=== PATIENT | female | born 1980 | race Caucasian/White ===

== ENCOUNTER 2017-05-30 06:56 | Inpatient (IN) | payer OTHER ==
[~2017-05-30] VITALS: Ht 165.1 cm; Wt 93.9 kg
[~2017-05-30 06:56] MED LIST: AZITHROMYCIN 2250 MG; CLONIDINE0.1 PO; EFFEXOR XR75 MG PO; LAMICTAL100 MG PO; LEVAQUIN 500 M500 M2 PO; NORCO 5-325 TA1 EACH PO; OMNARIS; SERTRALINE HCL50 MG; VENTOLIN HFA 1818 GM INH; XANAX 0.5 MG0.5 M1 PO
[2017-05-30 07:00] VITALS: BP 159/103
[2017-05-30] MEDS ORDERED: LISINOPRIL5 MG PO (07:06)
[2017-05-30 07:32] LABS: ABSOLUTE BASOPHILS 0.1 thou/uL (0.0-0.2); ABSOLUTE EOSINOPHILS 0.5 thou/uL (0.0-0.7); ABSOLUTE LYMPHOCYTES 2.8 thou/uL (0.8-5.3); ABSOLUTE MONOCYTES 0.9 thou/uL (0.0-1.2); ABSOLUTE NEUTROPHILS 8.8 thou/uL (1.6-8.1); BASOPHILS 0.5 %; EOSINOPHILS 3.9 %; HEMATOCRIT 37.7 % (37.0-47.0); HEMOGLOBIN 12.4 gm/dL (12.0-15.0); LYMPHOCYTES 21.5 %; MCHC 32.8 g/dL (28.0-37.0); MCV 82.1 fL (80.0-100.0); MONOCYTES 6.6 %; MPV 7.2 fl. (7.2-11.1); NUCLEATED RBCS 0 /100WBC; PLATELET COUNT* 381 thou/uL (150-400); POLYS 67.5 %; RBC 4.59 mil/uL (4.20-5.00); RDW-CV 13.7 % (10.5-14.5); WBC 13.1 thou/uL (4.0-11.0)
[2017-05-30 07:40] LABS: ANION GAP < 0 mmol/L (7-16); BUN 15 mg/dL (7-18); CALCIUM 9.1 mg/dL (8.5-10.1); CHLORIDE 92 mmol/L (98-107); CO2 29 mmol/L (21-32); CREATININE 0.8 mg/dL (0.6-1.3); GLUCOSE 128 mg/dL (70-99); POTASSIUM 3.4 mmol/L (3.5-5.1)
[2017-05-30 07:46] LABS: SODIUM 117 mmol/L (136-145)
[2017-05-30 07:47] LABS: URINE BILIRUBIN NEGATIVE (Negative); URINE BLOOD TRACE (Negative); URINE CLARITY CLEAR; URINE COLOR YELLOW; URINE GLUCOSE-RANDOM NEGATIVE (Negative); URINE KETONES NEGATIVE (Negative); URINE LEUKOCYTES-REFLEX NEGATIVE (Negative); URINE NITRITE-REFLEX NEGATIVE (Negative); URINE PROTEIN NEGATIVE (Negative); URINE UROBILINOGEN 0.2 E.U./dl (0.2-1.0)
[2017-05-30 07:48] LABS: ALBUMIN 3.9 g/dL (3.4-5.0); ALKALINE PHOSPHATASE 74 U/L (46-116); LIPASE 153 U/L (73-393); SGOT 26 U/L (15-37); SGPT 75 U/L (30-65); TOTAL BILIRUBIN 0.3 mg/dL (<0.1-1.0); TOTAL PROTEIN 7.6 g/dL (6.4-8.2); TROPONIN-I LEVEL <0.06 ng/mL (<0.06)
[2017-05-30 11:03] LABS: CALCIUM 9.1 mg/dL (8.5-10.1); CREATININE 0.7 mg/dL (0.6-1.3); POTASSIUM 4.2 mmol/L (3.5-5.1)
[2017-05-30 12:00] VITALS: BP 147/85
[2017-05-30 12:45] VITALS: BP 147/103
--- NOTE | 2017-05-30 13:39 | NUR ---
PATIENT ARRIVED FROM THE ER THIS AFTERNOON WITH A HX OF C/O SEVERE ABD PAIN. PATIENT WAS TEARFUL, AND SOBBING IN PAIN ON ARRIVAL. PATIENT IS ORIENTED X 4. PATIENT WAS GOING TO RECIEVE IV PAIN MEDICATION BUT A STAT PIPPADA SCAN WAS ORDERED. EXPLAINED TO PATIENT PARAMETER OF RECIEVING TEST AND THAT SHE COULD NOT HAVE ANY NARCOTICS PRIOR TO THE PROCEDURE. PATIENT STATED THAT THE INFO WAS UNDERSTOOD. IV FLUIDS STARTED PER ORDER. PATIENT POSITIONED AND GIVEN ORAL CARE. ORIENTED TO ROOM AND PROCEDURES. PLACED ON TELE MONITOR. TELE SHOWS ST. PATIENT IS LYING QUIETLY AT THIS TIME. WILL COTINUE TO MONITOR.
[2017-05-30 16:54] VITALS: BP 144/103
[2017-05-30 20:00] VITALS: BP 131/98
[2017-05-31] VITALS: BP 110/70
[2017-05-31 04:00] VITALS: BP 116/81
--- NOTE | 2017-05-31 04:26 | NUR ---
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
[2017-05-31 06:00] LABS: CALCIUM 8.7 mg/dL (8.5-10.1); CREATININE 0.7 mg/dL (0.6-1.3); POTASSIUM 4.7 mmol/L (3.5-5.1)
[2017-05-31 08:00] VITALS: BP 124/74
[2017-05-31 11:56] VITALS: BP 119/85
--- NOTE | 2017-05-31 13:02 | EKG ---
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1980 Requested By: Soheila Pretty Order Number: [id number] MD: Casimiro Jones Measurements Intervals Lissie Rate: 121 P: 51 PA: 135 QRS: 0 QRSD: 91 T: 37 QT: 334 QTc: 474 Interpretive Statements Sinus tachycardia Low voltage, extremity and precordial leads Compared to ECG 02/28/2017 19:09:34 No significant changes Electronically Signed On 05-31-2017 13:01:54 CDT by Casimiro Jones [email or web address] <ELECTRONICALLY SIGNED> By: Alena Jones MD, [facility] 05/31/17 [id number] [id number] Alena Jones MD, [facility] /EPI
--- NOTE | 2017-05-31 13:06 | EKG ---
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1980 Requested By: Alena Jones Order Number: [id number] Reading MD: Casimiro Jones Measurements Intervals [place] Rate: 109 P: 46 ND: 138 QRS: -2 QRSD: 86 T: 19 QT: 346 QTc: 467 Interpretive Statements Sinus tachycardia Probable left atrial enlargement Low voltage, extremity and precordial leads Compared to ECG 02/28/2017 19:09:34 No significant changes Electronically Signed On 05-31-2017 13:06:40 CDT by Casimiro Jones [email or web address] <ELECTRONICALLY SIGNED> By: Alena Jones MD, [facility] 05/31/17 1306 1645 [id number] F. Casimiro Jones MD, [facility] /EPI
--- NOTE | 2017-05-31 13:09 | EKG ---
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1980 Requested By: Alena Jones Order Number: [id number] Reading MD: Casimiro Jones Measurements Intervals [place] Rate: 102 P: 48 FL: 133 QRS: 8 QRSD: 88 T: 34 QT: 363 QTc: 473 Interpretive Statements Sinus tachycardia Low voltage, extremity and precordial leads Compared to ECG 02/28/2017 19:09:34 No significant changes Electronically Signed On 05-31-2017 13:08:59 CDT by Casimiro Jones [email or web address] <ELECTRONICALLY SIGNED> By: Alena Jones MD, [facility] 05/31/17 1306 2 2 Alena Jones MD, [facility] /EPI
--- NOTE | 2017-05-31 15:01 | NUR ---
ASSUMED CARE OF PATIENT THIS AM AT 0730. PATIENT CONTINUES ALERT AND ORIENTED X 4 THROUGH THE DAY TODAY. SHE SAID THAT HER PAIN HAS DIMINISHED OVER ALL. PATIENT C/O SINUS BLACKMAN TODAY AND SOME ABD PAIN. DR DEL TORO NOTIFIED OF PATIENTS'S C/O. ORDERS WRITTEN AND CARRIED OUT. SEE MAR. NEW CONSULT FOR SURGERY CALLED. PATIENT PLACED BACK ON NPO STATUS TODAY. PATIENT HAS BEEN UP IN THE ROOM INDEPENDENTLY. NO FALLS OR INJURY. TELE SHOWS SR TO ST. O2 SATS 91 TO 94 %. PATIENT INSTRUCTED TO TCBD Q 2 HR. WILL CONTINUE TO MONITOR.
[2017-05-31 15:17] VITALS: BP 94/53
[2017-05-31 19:40] VITALS: BP 141/72
[2017-06-01] VITALS: BP 120/77
[2017-06-01 04:00] VITALS: BP 112/71
--- NOTE | 2017-06-01 05:15 | NUR ---
A&0 X4 CALM COOPERITVE. SR ON THE MONITOR. ADLIB. FLUIDS. NPO FOR POSSIBLE SURGERY ON GULLBLADDER. DENIES PAIN. VITALS WNL. HOURLY ROUNDING FOR SAFETY.
[2017-06-01 05:34] LABS: ABSOLUTE EOSINOPHILS 0.4 thou/uL (0.0-0.7); ABSOLUTE LYMPHOCYTES 2.5 thou/uL (0.8-5.3); ABSOLUTE MONOCYTES 0.7 thou/uL (0.0-1.2); ABSOLUTE NEUTROPHILS 7.8 thou/uL (1.6-8.1); BASOPHILS 0.3 %; EOSINOPHILS 3.3 %; HEMATOCRIT 33.4 % (37.0-47.0); HEMOGLOBIN 11.1 gm/dL (12.0-15.0); LYMPHOCYTES 22.1 %; MCH 27.3 pg (26.0-34.0); MCHC 33.4 g/dL (28.0-37.0); MONOCYTES 5.8 %; MPV 7.5 fl. (7.2-11.1); NUCLEATED RBCS 0 /100WBC; PLATELET COUNT* 321 thou/uL (150-400); POLYS 68.5 %; RBC 4.08 mil/uL (4.20-5.00); WBC 11.3 thou/uL (4.0-11.0)
[2017-06-01 05:49] LABS: ALBUMIN 3.2 g/dL (3.4-5.0); CALCIUM 8.4 mg/dL (8.5-10.1); CREATININE 0.7 mg/dL (0.6-1.3); MAGNESIUM 1.8 mg/dL (1.8-2.4); PHOSPHORUS* 2.8 mg/dL (2.5-4.9); POTASSIUM 4.2 mmol/L (3.5-5.1); TOTAL BILIRUBIN 0.5 mg/dL (<0.1-1.0); TOTAL PROTEIN 6.2 g/dL (6.4-8.2)
[2017-06-01 08:00] VITALS: BP 117/69
[2017-06-01 12:00] VITALS: BP 108/72
--- NOTE | 2017-06-01 14:12 | NUR ---
ASSUMED RESPONSIBILITY OF PT THIS AM PT ALERT AND ORIENTEDX4 UP AD KYE IV FLUIDS CONTINUE PLAN FOR SURGERY TOMORROW CLEAR LIQUIDS STARTED MILD PAIN TO RIGHT UPPER QUAD AREA PT HAD A BM INCONTINENT DIDN'T EXPECT IT TO COME OUT THAT FAST CARDIOLOGY SIGNED OFF WANTS ECHO DONE CALL LIGHT IN REACH
--- NOTE | 2017-06-01 14:53 | NUR ---
Pt is A&O. Resides at home with her . Independent with ADLs. No DME. No hx of HH or SNF. Cleared by CV to have lap karuna tomorrow. Following for dc needs.
--- NOTE | 2017-06-01 17:00 | 2DMMODE ---
[place] [address] 2 D/M-MODE ECHOCARDIOGRAM Name: PATRIA KIM V Room: [address] IN [facility]#: [id number] Admission: 05/30/17 Attend Phys: Eleno Key, Discharge: Date of : 84 Date of Service: 06/01/17 1700 Report #: [id number] THIS REPORT FOR: //name// APPROVED REPORT Study performed: 06/01/2017 14:15:31 EXAM: Comprehensive 2D, Doppler, and color-flow Echocardiogram Patient Location: In-Patient Room #: 200 Status: routine BSA: 1.98 HR: 85 bpm BP: 108/72 mmHg Rhythm: NSR Other Information Study Quality: Good Indications Abnormal ECG Abdominal pain 2D Dimensions IVSd: 8.62 (7-11mm) LVOT Diam: 20.56 (18-24mm) LVDd: 47.23 mm PWd: 7.83 (7-11mm) Ascending Ao: 30.08 (22-36mm) LVDs: 36.90 (25-40mm) Aortic Root: 30.14 mm Volumes Left Atrial Volume (Systole) LA ESV Index: 18.10 mL/m2 Aortic Valve AoV Peak Sergio.: 1.10 m/s AO Peak Gr.: 4.87 mmHg LVOT Max P.38 mmHg AO Mean Gr.: 2.62 mmHg LVOT Mean P.81 mmHg LVOT Max V: 0.92 m/s AO V2 VTI: 20.23 cm LVOT Mean V: 0.63 m/s PIETER (VTI): 2.89 cm2 LVOT V1 VTI: 17.58 cm Mitral Valve E/A Ratio: 1.32 MV Decel. Time: 186.47 [place] [address] 2 D/M-MODE ECHOCARDIOGRAM Name: PATRIA KIM V Room: [address]#: [id number] Admission: 05/30/17 Attend Phys: Eleno Key, Discharge: Date of : 84 Date of Service: 06/01/17 1700 Report #: [id number] MV E Max Sergio.: 0.82 m/s MV PHT: 54.08 ms MVA (PHT): 4.07 cm2 TDI E/Lateral E': 5.13 E/Medial E': 6.31 Medial E' Sergio.: 0.13 m/s Lateral E' Sergio.: 0.16 m/s Pulmonary Valve PV Peak Sergio.: 0.82 m/s PV Peak Gr.: 2.70 mmHg Tricuspid Valve TR Peak Gr.: 15.52 mmHg RVSP: 20.00 mmHg Left Ventricle The left ventricle is normal size. There is normal LV segmental wall motion. There is normal left ventricular wall thickness. Left ventricular systolic function is normal. The left ventricular ejection fraction is within the normal range. LVEF is 50-55%. The left ventricular diastolic function is normal. Right Ventricle The right ventricle is normal size. The right ventricular systolic function is normal. Atria The left atrium size is normal. The right atrium size is normal. Aortic Valve The aortic valve is normal in structure. No aortic regurgitation is present. There is no aortic valvular stenosis. Mitral Valve The mitral valve is normal in structure. Trace mitral regurgitation. No evidence of mitral valve stenosis. Tricuspid Valve The tricuspid valve is normal in structure. Trace tricuspid regurgitation. The RVSP is ___20____ mmHg. Pulmonic Valve The pulmonary valve is normal in structure. Trace pulmonic [place] [address] 2 D/M-MODE ECHOCARDIOGRAM Name: JULIOPATRIA LANZA Remington Room: [address] IN [facility]#: [id number] Admission: 05/30/17 Attend Phys: Eleno Key, Discharge: Date of : 84 Date of Service: 06/01/17 1700 Report #: [id number] Great Vessels The aortic root is normal in size. IVC is not well visualized. Pericardium There is no pericardial effusion. <Conclusion> Left ventricular systolic function is normal. The left ventricular ejection fraction is within the normal range. <ELECTRONICALLY SIGNED> By: Huseyin Blunt MD, FACC 06/01/171699 99 99 Huseyin Blunt MD, FACC /INF
[2017-06-01 20:00] VITALS: BP 117/69
[2017-06-02 00:25] VITALS: BP 116/79
--- NOTE | 2017-06-02 00:26 | NUR ---
ASSUMED PT CARE AT 1930, PT IS A&OX4, PT IS MED SURG, ON RA SATTING MID TO HIGH 90'S. PT DENIES ANY PAIN OR NEEDS AT THIS TIME. PT IS NPO FOR PENDING GALLBLADDER REMOVAL IN THE AM, CONSENT WILL BE SIGNED IN THE AM, BED IN LOW POSITION, CALL LIGHT IN REACH, HOURLY ROUNDING COMPLETED FOR PT SAFETY. IVF INFUSING PER MAR. PT IS UP AD KYE IN HER ROOM AND STABLE ON HER FEET.
[2017-06-02 05:48] LABS: ABSOLUTE EOSINOPHILS 0.4 thou/uL (0.0-0.7); ABSOLUTE LYMPHOCYTES 2.2 thou/uL (0.8-5.3); ABSOLUTE MONOCYTES 0.6 thou/uL (0.0-1.2); ABSOLUTE NEUTROPHILS 7.4 thou/uL (1.6-8.1); BASOPHILS 0.3 %; EOSINOPHILS 3.5 %; HEMATOCRIT 34.8 % (37.0-47.0); HEMOGLOBIN 11.7 gm/dL (12.0-15.0); LYMPHOCYTES 20.6 %; MCH 27.5 pg (26.0-34.0); MCHC 33.5 g/dL (28.0-37.0); MCV 81.9 fL (80.0-100.0); MONOCYTES 5.8 %; MPV 7.5 fl. (7.2-11.1); NUCLEATED RBCS 0 /100WBC; PLATELET COUNT* 324 thou/uL (150-400); POLYS 69.8 %; RBC 4.25 mil/uL (4.20-5.00); RDW-CV 14.3 % (10.5-14.5); WBC 10.5 thou/uL (4.0-11.0)
[2017-06-02 05:52] LABS: APTT 28.2 Seconds (25.0-31.3); INR 1.1; PROTIME 10.5 Seconds (9.20-11.50)
[2017-06-02 06:16] LABS: ALBUMIN 3.3 g/dL (3.4-5.0); CALCIUM 8.6 mg/dL (8.5-10.1); CREATININE 0.8 mg/dL (0.6-1.3); POTASSIUM 4.3 mmol/L (3.5-5.1); TOTAL BILIRUBIN 0.4 mg/dL (<0.1-1.0); TOTAL PROTEIN 6.2 g/dL (6.4-8.2)
[2017-06-02 06:34] VITALS: BP 116/79
--- NOTE | 2017-06-02 07:45 | NUR ---
PT WENT DOWN FOR SURGERY GALL BLADDER REMOVAL
[2017-06-02 08:00] VITALS: BP 123/76
[2017-06-02] MEDS ORDERED: LOPRESSOR25 PO (09:36)
[2017-06-02 12:00] VITALS: BP 130/80
[2017-06-02 16:00] VITALS: BP 124/69
--- NOTE | 2017-06-02 16:14 | CON ---
[address] [address] CONSULTATION Name: PATRIA KIM V Room: [address] IN M.R.#: [id number] Admission: 05/30/17 Attend Phys: Eleno Key MD Discharge: Date of : 84 Report #: [id number] THIS REPORT FOR: //name// CC: Eleno Robertson DATE OF SERVICE: 05/31/2017 CARDIOLOGY CONSULTATION HISTORY OF PRESENT ILLNESS: I was asked by Dr. Key to see this 37-year-old white female in cardiology consultation for evaluation and treatment of sinus tachycardia. This lady presented to the Emergency Room here with right upper quadrant pain as well as diffuse abdominal pain, back pain and some chest pain. She was found to have acute cholecystitis with stones. There was no filling of her gallbladder on this study. She does have a history of high blood pressure. Otherwise, she has no coronary risk factors other than her grandfather and great grandmother having a history of some sort of heart disease. She no longer is having any chest pain. She was noted to have sinus tachycardia at a rate of around 120 that has come down. She has gotten some beta connie to bring it down, but she admits to having been in severe pain of 8 or 9 on a scale of 10 for 8 hours before she came in and she was quite anxious as well. This lady was hypertensive when she came in, that has come down, whether or not she has been compliant with her antihypertensive medication is not clear. The chest pain she had was not worse with activity or better with rest. It was not associated with shortness of breath, nausea or vomiting. Her abdominal pain was exacerbated by food, she thought it was indigestion. She does have chronic dyspnea on exertion, but not orthopnea, PND or edema. She is obese. She has not had syncope or near syncope. She does not smoke, does not have high cholesterol or diabetes to her knowledge. She has not had peripheral vascular disease, does not have claudication. She has had no prior cardiac history. ALLERGIES: She is allergic to PENICILLIN. MEDICATIONS: Have been albuterol p.r.n. for apparent bronchitis, not frankly asthma. She takes Lamictal 100 mg daily, lisinopril 5 mg daily and Effexor 75 mg daily. REVIEW OF SYSTEMS: Positive for cough, chest discomfort, shortness of breath with exercise, seasonal allergies, PENICILLIN allergy and wearing glasses. Otherwise, review of systems is negative for some 40 different complaints in 14 different system categories. Please see our review of system form for details and negatives in review of system. SOCIAL HISTORY: She is , does not smoke, drink [place] [address] CONSULTATION Name: PATRIA KIM V Room: [address] IN M.R.#: [id number] Admission: 05/30/17 Attend Phys: Eleno Key MD Discharge: Date of : 84 Report #: [id number] FAMILY HISTORY: Negative other than as described above. PHYSICAL EXAMINATION: GENERAL: She presents as well-developed, well-nourished, obese white female in no acute distress. VITAL SIGNS: Pulse was 87 and regular, temperature is 98 degrees, her blood pressure is 116/81, respirations 16 and regular. She is clinically afebrile. HEENT: Head was atraumatic. Eyes clear. Mucous membranes are moist. NECK: Supple. There is no jugular venous distention or hepatojugular reflux. Thyroid is not enlarged. There is no adenopathy. SKIN: Warm and dry. LUNGS: Clear to auscultation and percussion. HEART: Revealed normal first and second heart sounds. There is soft S4. There is no S3. There are no murmurs, rubs, thrills, heaves or gallops. PMI is nondisplaced. ABDOMEN: Soft and flat, but obese. She does have a significant right upper quadrant tenderness that does reproduce her abdominal pain and to some degree her chest pain. There is no rebound or guard. There is no palpable liver, kidney, or spleen. EXTREMITIES: Reveal no cyanosis, clubbing or edema. NEUROLOGIC: The patient mentated normally, talked normally and moved all extremities normally. LABORATORY DATA: Her EKG reveals sinus tachycardia. Heart rate was 102, that is from this morning, otherwise it is normal. One from yesterday at 7:00 a.m. revealed sinus tachycardia, heart rate of 101, otherwise unremarkable. She had another one from 04:45 yesterday evening, sinus tachycardia, rate is 109. The monitors all show either normal sinus rhythm or mild sinus tachycardia. Her chest x-ray is unremarkable, it is normal. Gallbladder ultrasound shows cholelithiasis and sludge and the nuclear scan did not visualize the gallbladder. IMPRESSION: 1. Sinus tachycardia secondary to the pain and anxiety produced by her illness. 2. Cholecystitis with cholelithiasis. 3. Essential hypertension. 4. Chest pain that was secondary to her gallbladder pain. 5. Obesity. RECOMMENDATION: She is already on a low dose of beta connie that could be continued. Hopefully, will be able to be tapered off and stopped. She will probably need more aggressive blood pressure management, ultimately perhaps a bigger dose of lisinopril. I think she is a reasonable candidate for gallbladder surgery. [address] [address] CONSULTATION Name: PATRIA KIM V Room: [address] IN .R.#: [id number] Admission: 05/30/17 Attend Phys: Eleno Key MD Discharge: Date of : 84 Report #: [id number] If her surgery has been delayed and there is concern about her chest pain, which I think was secondary to her gallbladder, then certainly a stress test and an echo could be obtained, although I am confident both of them will be normal. Thank you very much for asking me to see the patient. If there are any questions, please feel free to contact me. <ELECTRONICALLY SIGNED> By: Alena Jones MD, [facility] 06/02/17 1614 1202 [id number]. Casimiro Jones MD, FACGonzales /nt
--- NOTE | 2017-06-02 18:17 | NUR ---
PT IN BED C/O PAIN AFTER SURGERY RECEIVED 3 DOSES OF MORPHINE AND 2 OF ZOFRAN ONLY TAKING SMALL SIPS AND RESTING NOW PT DOESN'T FEEL SAFE LEAVING TONIGHT PT IS MED SURG WILL PROBABLY TRANSFER DOWNSTAIRS THEN WILL PLAN ON DISCHARGE TOMORROW DID GET UP AND VOIDED ON BSC
[2017-06-02 20:00] VITALS: BP 114/68
[2017-06-03 03:54] VITALS: BP 94/52
--- NOTE | 2017-06-03 05:15 | NUR ---
ASSUMED CARE OF PT AT 1900 PT ALERT AND ORIENTED X4 VS AND ASSESSMENT STABLE. ABD DRSGS CDI. PAIN MEDSX 2 THIS SHIFT THEN PT SLEPT THROUGH THE NIGHT. WILL CONTINUE PLAN OF CARE.
[2017-06-03 07:30] VITALS: BP 98/58
[2017-06-03] MEDS ORDERED: LOPRESSOR25 PO (08:00)
[2017-06-03 08:30] VITALS: BP 133/63
--- NOTE | 2017-06-03 09:31 | NUR ---
RECEIVED PT CARE 0700. PT IS ALERT AND ORIENTED X4. VSS. 93% O2 SAT ON ROOM AIR. SHE DENIES ANY SOA. UP INDEPENDENTLY IN ROOM WITH BATHROOM PRIVILEDGES. GAIT IS STEADY. PLANNING FOR DC TO HOME TODAY.
[2017-06-03] MEDS ORDERED: HYDROCODONE-AP1 EAC6 PO (09:39)
[2017-06-03 09:42] VITALS: BP 98/58
--- NOTE | 2017-06-03 12:21 | NUR ---
RECEIVED DISCHARGE ORDERS PER DR DEL TORO. SURGERY OK WITH DC TO HOME TODAY. IV DISCONTINUED. NEW SCRIPTS GIVEN WITH MED INFORMATION SHEETS. EDUCATED PATIENT ON F/U APPT WITH SURGERY AND HER PRIMARY POST DISCHARGE. EDUCATED ON ACTIVITY RESTRICTIONS POST DISCHARGE. EDUCATION GIVEN ON HOME MEDICATIONS. INSRUCTED PATIENT TO STOP HER LISINOPRIL AT HOME AND START METOPROLOL. PATIENT VERBALIZED UNDERSTANDING AND DENIES ANY QUESTIONS OR CONCERNS AT DISCHARGE. LEAVING VIA WHEELCHAIR ACCOMPANIED BY NURSING STAFF AND HER FAMILY.
--- NOTE | 2017-06-03 13:22 | S ---
[address] [address] SURGICAL PATH RPT PROCEDURE Name: PATRIA KRISHNAN V Room: [address] IN .R.#: [id number] Admission: 05/30/17 Date of : 84 Discharge: 06/03/17 Report #: [id number] Path Case #: [id number] PATHOLOGY REPORT COLLECTION DATE: 06/02/2017 RECEIVED DATE: 06/02/2017 SUBMITTING PHYS: Dr. Andrei Baker OTHER PHYS: Dr. Eleno Key SPECIMEN(S) RECEIVED: A.Gallbladder * * * * * * * * * * * * FINAL DIAGNOSIS: Gallbladder: - Chronic cholecystitis and cholelithiasis. (ADRIANNE:mgr; 06/03/2017) PATHOLOGIST: Zan Harrell M.D. REPORT ELECTRONICALLY SIGNED BY: Zan Harrell M.D. DATE/TIME: 06/03/2017 13:21 * * * * * * * * * * * * GROSS PATHOLOGY: Received in formalin labeled "Patria Krishnan, gallbladder," is a 10.5 x 2.6 x 2.9 cm, previously punctured gallbladder with dark pink, vascular serosal surfaces. Opening the gallbladder reveals dark pink, velvety mucosa and an average wall thickness of 0.2 cm. Calculi are present, measuring 2.1 cm in maximum dimension, possessing a bright yellow and granular appearance, and feeling friable to the touch. No masses are noted grossly. Records Analyst sections from the body and fundus are submitted along with the proximal margin in cassette A1. (TSD; 06/02/2017) CLINICAL HISTORY: Cholecystitis with cholelithiasis INITIAL CPT CODE(S): A; 57389 Professional services performed by [facility] at [facility], [address] [place] [address] [address], [place] [address]. Technical services performed by [facility] at [address] [place] [address], [address] [address]. [place] [address] SURGICAL PATH RPT PROCEDURE Name: PATRIA KRISHNAN V Room: [address] IN M.R.#: [id number] Admission: 05/30/17 Date of : 84 Discharge: 06/03/17 Report #: [id number] Path Case #: [id number] [facility] [address] [place] [id number] PHONE: [phone] DIRECTOR: Jim Solo M.D. * * * END OF REPORT * * *
--- NOTE | 2017-06-09 10:58 | OP ---
[address] [address] OPERATIVE REPORT Name: KIESHA KIMFER Remington Room: [address]#: [id number] Admission: 05/30/17 Attend Phys: Eleno Key MD Discharge: 06/03/17 Date of : 84 Report #: [id number] THIS REPORT FOR: //name// CC: Eleno Robertson DATE OF SERVICE: 06/02/2017 PREOPERATIVE DIAGNOSIS: Acute cholecystitis with cholelithiasis. POSTOPERATIVE DIAGNOSIS: Acute cholecystitis with cholelithiasis. PROCEDURE: Laparoscopic cholecystectomy. SURGEON: Andrei Baker DO. FABRIC DESIGNER: Amaury Steward DO, PGY2, resident. SECOND OFFICE PROFESSIONAL: Jaison Sutherland DO, PGY1 resident. ANESTHESIA: General endotracheal. ESTIMATED BLOOD LOSS: 30 mL. COMPLICATIONS: None. DESCRIPTION OF PROCEDURE: After obtaining proper consents and discussing risks and complications with the patient, she was taken to the operating room, laid in the supine position and administered general anesthesia. She was then prepped and draped in the usual fashion. An infraumbilical skin incision was made with a #11 scalpel blade. This was carried down through the skin into the subcutaneous tissue using electrocautery for hemostasis. Once the fascia was encountered, it was incised along the midline, grasped and elevated with [facility] clamps. The peritoneum was then bluntly opened using a hemostat. A finger was placed inside the peritoneal cavity to assure there were no tanya-incisional adhesions. Next, 2-0 Vicryl sutures were placed in a [id number] fashion to secure the Ayan trocar, which was then inserted and insufflation was begun. Once insufflation was complete, full visual inspection of the anterior abdominal organs was performed. This revealed very distended thick walled appearing gallbladder. The liver was somewhat fatty as well and there is a large amount of omental fat identified. We then placed the patient in reverse Trendelenburg position. A 5 mm trocar was placed to the subxiphoid position. Two 5 mm trocars were placed in the right flank. The gallbladder was then grasped and elevated. There were adhesions of the duodenum to [place] [address] OPERATIVE REPORT Name: PATRIA KIM V Room: [address] IN [facility].#: [id number] Admission: 05/30/17 Attend Phys: Eleno Key MD Discharge: 06/03/17 Date of : 84 Report #: [id number] were bluntly taken down using the [place] dissector and also using electrocautery, but staying well away from the duodenum. Once these were removed, we were easily able to identify the Salo's pouch. There appeared to be a stone in the neck of the gallbladder, which was completely obstructing the gallbladder. Also prior to doing this, we did aspirate the gallbladder. Because it was so tense, we were unable to grasp it. I was able to milk the stone up into the body of the gallbladder and then grasped Salo's pouch, which was then elevated. The hepatoduodenal ligament was stripped down until we could visualize the cystic duct as it coursed directly into the gallbladder. I also obtained a good view of the common hepatic duct and common bile duct. The cystic duct was completely dissected free. It was clipped proximally and distally and then divided between clips. The cystic artery was then dissected free. It was clipped proximally and distally and then divided. The gallbladder was then removed from the liver bed. In the process of doing this, we did identify a second artery, which was coursing directly into the gallbladder posteriorly. This was completely dissected free and clipped proximally and distally as well. The gallbladder was then completely removed from the liver bed using electrocautery and placed into an Endopouch. We then assured hemostasis within the liver bed. The cystic duct and cystic artery stumps were checked for any leak or bleeding. The area was then copiously irrigated and all fluid was aspirated back. We then placed the patient back in the normal supine position, insufflation was stopped and all air was released. Trocars were removed under direct vision. The gallbladder was removed through the umbilical incision. The umbilical fascia was then closed using the two previously placed ____ Vicryl sutures plus two additional 0 Vicryl sutures. Skin incisions were closed using 4-0 Monocryl subcuticular stitches. The wounds were injected with 0.5% Marcaine without epinephrine. Mastisol, Steri-Strips, sterile OpSite and pressure dressings were placed. Sponge, needle and instrument counts were all correct at the end of the procedure. <ELECTRONICALLY SIGNED> By: Andrei Baker DO 06/09/17 1058 1007 1045Aсветлана Baker DO /nt
== END 2017-06-03 12:24 | disposition home or self-care (01) | DRG 418 ==
LOC: M.ERS 06:56 → M.2W 09:12 → M.TBA-ER 09:12 → M.2W 12:06
PROVIDERS: Emergency Medicine; Surgery; ADMIT Internal Medicine
PROC: 0FT44ZZ Resection of Gallbladder, Percutaneous Endoscopic Approach (ICD-10-PCS; principal; 2017-06-02)
DX: K80.00 Calculus of gallbladder with acute cholecystitis without obstruction (principal); R65.10 Systemic inflammatory response syndrome (SIRS) of non-infectious origin without acute organ dysfunction; K82.1 Hydrops of gallbladder; E87.1 Hypo-osmolality and hyponatremia; R00.0 Tachycardia, unspecified; K75.81 Nonalcoholic steatohepatitis (NASH); E66.9 Obesity, unspecified; R07.9 Chest pain, unspecified; I10 Essential (primary) hypertension; F32.9 Major depressive disorder, single episode, unspecified; F41.9 Anxiety disorder, unspecified; Z79.899 Other long term (current) drug therapy; Z88.0 Allergy status to penicillin; Z68.34 Body mass index [BMI] 34.0-34.9, adult

== ENCOUNTER 2017-10-25 21:54 | Emergency (ER) | payer OTHER ==
[~2017-10-25] VITALS: Ht 165.1 cm; Wt 88.9 kg
[~2017-10-25 21:54] MED LIST changes: +HYDROCODONE-AP1 EAC6 PO; +LISINOPRIL5 MG PO; +LOPRESSOR25 PO
[2017-10-25] MEDS ORDERED: EVEKEO10 MG (22:47)
[2017-10-25 22:53] LABS: ABSOLUTE EOSINOPHILS 0.4 thou/uL (0.0-0.7); ABSOLUTE LYMPHOCYTES 2.9 thou/uL (0.8-5.3); ABSOLUTE MONOCYTES 0.6 thou/uL (0.0-1.2); ABSOLUTE NEUTROPHILS 6.9 thou/uL (1.6-8.1); BASOPHILS 0.5 %; EOSINOPHILS 3.8 %; HEMATOCRIT 40.7 % (37.0-47.0); HEMOGLOBIN 13.4 gm/dL (12.0-15.0); LYMPHOCYTES 26.5 %; MCH 26.8 pg (26.0-34.0); MCV 81.2 fL (80.0-100.0); MONOCYTES 5.4 %; MPV 7.5 fl. (7.2-11.1); NUCLEATED RBCS 0 /100WBC; PLATELET COUNT* 454 thou/uL (150-400); POLYS 63.8 %; RBC 5.02 mil/uL (4.20-5.00); RDW-CV 12.8 % (10.5-14.5); WBC 10.8 thou/uL (4.0-11.0)
[2017-10-25 22:57] LABS: ANION GAP 6 mmol/L (7-16); BUN 15 mg/dL (7-18); CALCIUM 9.2 mg/dL (8.5-10.1); CHLORIDE 103 mmol/L (98-107); CO2 31 mmol/L (21-32); GLUCOSE 95 mg/dL (70-99); POTASSIUM 3.6 mmol/L (3.5-5.1); SODIUM 140 mmol/L (136-145)
[2017-10-25 23:07] LABS: ALBUMIN 4.3 g/dL (3.4-5.0); ALKALINE PHOSPHATASE 75 U/L (46-116); LIPASE 185 U/L (73-393); MAGNESIUM 1.8 mg/dL (1.8-2.4); NT-PRO BRAIN NAT PEPTIDE 33 pg/mL (<300); SGOT 15 U/L (15-37); SGPT 36 U/L (30-65); TOTAL BILIRUBIN 0.3 mg/dL (<0.1-1.0); TOTAL PROTEIN 7.7 g/dL (6.4-8.2); TROPONIN-I LEVEL <0.06 ng/mL (<0.06)
[2017-10-26] MEDS ORDERED: NORCO 5-325 TA1 EACH PO (00:46)
[2017-10-26 01:11] VITALS: BP 116/78
--- NOTE | 2017-10-26 10:42 | EKG ---
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1980 Requested By: Jaret Schultz Order Number: [id number] MD: Huseyin Blunt Measurements Intervals [place] Rate: 93 P: 118 [place]: 119 QRS: -2 QRSD: 90 T: 145 QT: 373 QTc: 464 Interpretive Statements Sinus rhythm low voltage Borderline short [place] interval Probable lateral infarct, age indeterminate Baseline wander in lead(s) V1 Compared to ECG 05/31/2017 08:13:18 Sinus tachycardia no longer present Electronically Signed On 10-26-2017 10:41:47 CDT by Huseyin Blunt [email or web address] <ELECTRONICALLY SIGNED> By: Huseyin Blunt MD, [facility] 10/26/17 1041 [phone] Huseyin Blunt MD, [facility] /EPI
--- NOTE | 2017-10-26 10:48 | EKG ---
[place] [address] ELECTROCARDIOGRAM REPORT Name: PATRIA KIM V Room: [facility]#: [id number] Admission: 10/25/17 Attend Phys: Discharge: 10/26/17 Date of : 84 Report #: [id number] THIS REPORT FOR: //name// [facility] ED Test Date: 2017-10-26 Test Time: 00:03:12 Pat Name: PATRIA BAKERNUM Department: Room: Gender: F Safety Intern: : 1980 Requested By: Jaret Schultz Order Number: [id number] MD: Huseyin Blunt Measurements Intervals [place] Rate: 72 P: 27 ID: [id number] QRS: 12 QRSD: 93 T: 49 QT: 409 QTc: 448 Interpretive Statements Sinus rhythm Borderline low voltage, extremity leads Compared to ECG 10/25/2017 21:59:25 no change Electronically Signed On 10-26-2017 10:47:55 CDT by Huseyin Blunt [email or web address] <ELECTRONICALLY SIGNED> By: Huseyin Blunt MD, [facility] 10/26/17 1047 0003 0003 Huseyin Blunt MD, FACC /EPI
== END 2017-10-26 01:13 | disposition home or self-care (01) ==
LOC: M.ERS 21:54
PROVIDERS: Emergency Medicine Emergency Medical Services
DX: R07.89 Other chest pain (principal); I10 Essential (primary) hypertension; F41.9 Anxiety disorder, unspecified; F32.9 Major depressive disorder, single episode, unspecified; Z88.0 Allergy status to penicillin

== ENCOUNTER 2020-03-20 06:39 | Emergency (ER) | payer OTHER ==
[~2020-03-20] VITALS: Ht 165.1 cm; Wt 76.2 kg
[~2020-03-20 06:39] MED LIST changes: +EVEKEO10 MG
[2020-03-20] MEDS ORDERED: SERTRALINE HCL50 MG PO (06:50)
[2020-03-20 07:40] LABS: ABSOLUTE BASOPHILS 0.1 thou/uL (0.0-0.2); ABSOLUTE EOSINOPHILS 0.2 thou/uL (0.0-0.7); ABSOLUTE LYMPHOCYTES 2.9 thou/uL (0.8-5.3); ABSOLUTE MONOCYTES 0.5 thou/uL (0.0-1.2); ABSOLUTE NEUTROPHILS 7.7 thou/uL (1.6-8.1); BASOPHILS 0.6 %; EOSINOPHILS 2.2 %; HEMATOCRIT 39.9 % (37.0-47.0); LYMPHOCYTES 25.4 %; MCH 26.8 pg (26.0-34.0); MCHC 32.6 g/dL (28.0-37.0); MCV 82.3 fL (80.0-100.0); MONOCYTES 4.6 %; MPV 6.6 fl. (7.2-11.1); NUCLEATED RBCS 0 /100WBC; PLATELET COUNT* 365 thou/uL (150-400); POLYS 67.2 %; RBC 4.84 mil/uL (4.20-5.00); RDW-CV 12.8 % (10.5-14.5); WBC 11.5 thou/uL (4.0-11.0)
[2020-03-20 07:48] LABS: ANION GAP 5 mmol/L (7-16); BUN 9 mg/dL (7-18); CALCIUM 9.4 mg/dL (8.5-10.1); CHLORIDE 104 mmol/L (98-107); CO2 32 mmol/L (21-32); CREATININE 0.7 mg/dL (0.6-1.3); GLUCOSE 102 mg/dL (70-99); POTASSIUM 4.4 mmol/L (3.5-5.1); SODIUM 141 mmol/L (136-145)
[2020-03-20 07:50] LABS: APTT 23.9 Seconds (25.0-31.3); PROTIME 10.4 Seconds (9.20-11.50)
[2020-03-20 08:01] LABS: ALKALINE PHOSPHATASE 51 U/L (46-116); CK-MB MASS < 0.5 ng/mL (<0.5-3.6); LIPASE 122 U/L (73-393); MAGNESIUM 2.1 mg/dL (1.8-2.4); NT-PRO BRAIN NAT PEPTIDE 18 pg/mL (<300); SGOT 12 U/L (15-37); SGPT 25 U/L (30-65); TOTAL BILIRUBIN 0.6 mg/dL (<0.1-1.0); TOTAL PROTEIN 7.3 g/dL (6.4-8.2)
[2020-03-20 08:16] VITALS: BP 120/87
--- NOTE | 2020-03-20 14:02 | EKG ---
[place] [address] ELECTROCARDIOGRAM REPORT Name: PATRIA KIM V Room: [facility]#: [id number] Admission: 03/20/20 Attend Phys: Discharge: 03/20/20 Date of : 84 Date of Service: 03/20/20 0644 Report #: [id number] THIS REPORT FOR: //name// [facility] ED Test Date: 2020-03-20 Test Time: 06:44:57 Pat Name: PATRIA JULIO Department: Room: Gender: F Lepidopterist: : 1980 Requested By: True Muñoz Order Number: [id number] MD: Jamaal Mehta Measurements Intervals [place] Rate: 119 P: 61 MO: 127 QRS: 51 QRSD: 101 T: 44 QT: 322 QTc: 454 Interpretive Statements Sinus tachycardia Low voltage, extremity and precordial leads Minimal ST depression, anterolateral leads Compared to ECG 10/26/2017 00:03:12 ST (T wave) deviation now present Sinus rhythm no longer present Electronically Signed On 03-20-2020 14:02:34 READING PROFESSOR by Jamaal Mehta [email or web address] <ELECTRONICALLY SIGNED> By: Jamaal Mehta MD, FAC 03/20/20 [phone] Jamaal Mehta MD, FAC /EPI
== END 2020-03-20 08:16 | disposition home or self-care (01) ==
LOC: M.ERS 06:39
PROVIDERS: Family Medicine
DX: R07.9 Chest pain, unspecified (principal); I10 Essential (primary) hypertension; Z79.899 Other long term (current) drug therapy; Z88.0 Allergy status to penicillin

== ENCOUNTER → 2020-03-27 | Outpatient (CLI) | payer OTHER ==
[~2020-03-27] MED LIST changes: +SERTRALINE HCL50 MG PO
--- NOTE | 2020-03-27 15:41 | 2DMMODE ---
[place] [address] 2 D/M-MODE ECHOCARDIOGRAM Name: JULIOKIESHA MENDOZAFER [place] Room: [facility]#: [id number] Admission: 03/27/20 Attend Phys: Aisha Meléndez, Discharge: Date of : 84 Date of Service: 03/27/20 1541 Report #: [id number] THIS REPORT FOR: cc: Aisha Meléndez APRN, Amber APRN FNP Liston, Michael J. MD [facility] ~ APPROVED REPORT Study performed: 03/27/2020 13:47:33 EXAM: Comprehensive 2D, Doppler, and color-flow Echocardiogram Patient Location: Out-Patient BSA: 1.82 HR: 78 bpm BP: 115/70 mmHg Other Information Study Quality: Good Indications Palpitations 2D Dimensions IVSd: 11.58 (7-11mm) LVOT Diam: 20.44 (18-24mm) LVDd: 44.05 mm PWd: 6.60 (7-11mm) Ascending Ao: 30.21 (22-36mm) LVDs: 29.70 (25-40mm) Aortic Root: 26.48 mm Volumes Left Atrial Volume (Systole) LA ESV Index: 14.90 mL/m2 Aortic Valve AoV Peak Sergio.: 1.05 m/s AO Peak Gr.: 4.42 mmHg LVOT Max P.13 mmHg AO Mean Gr.: 2.48 mmHg LVOT Mean P.52 mmHg LVOT Max V: 0.88 m/s AO V2 VTI: 20.91 cm LVOT Mean V: 0.56 m/s PIETER (VTI): 2.91 cm2 LVOT V1 VTI: 18.56 cm Mitral Valve E/A Ratio: 1.14 [place] [address] 2 D/M-MODE ECHOCARDIOGRAM Name: PATRIA KIM V Room: [facility]#: [id number] Admission: 03/27/20 Attend Phys: Aisha Meléndez, Discharge: Date of : 84 Date of Service: 03/27/20 1541 Report #: [id number] MV Decel. Time: 157.47 ms MV E Max Sergio.: 0.59 m/s MV PHT: 45.67 ms MVA (PHT): 4.82 cm2 TDI E/Lateral E': 4.54 E/Medial E': 6.56 Medial E' Sergio.: 0.09 m/s Lateral E' Sergio.: 0.13 m/s Pulmonary Valve PV Peak Sergio.: 0.79 m/s PV Peak Gr.: 2.51 mmHg Left Ventricle The left ventricle is normal size. There is normal LV segmental wall motion. There is normal left ventricular wall thickness. Left ventricular systolic function is normal. LVEF is 55-60%. The left ventricular diastolic function is normal. Right Ventricle The right ventricle is normal size. The right ventricular systolic function is normal. Atria The left atrium size is normal. The right atrium size is normal. Aortic Valve The aortic valve is normal in structure. No aortic regurgitation is present. There is no aortic valvular stenosis. Mitral Valve The mitral valve is normal in structure. There is no mitral valve regurgitation noted. No evidence of mitral valve stenosis. Tricuspid Valve The tricuspid valve is normal in structure. There is no tricuspid valve regurgitation noted. Pulmonic Valve The pulmonary valve is normal in structure. There is no pulmonic valvular regurgitation. Great Vessels The aortic root is normal in size. IVC is normal in size and collapses >50% [place] [address] 2 D/M-MODE ECHOCARDIOGRAM Name: PATRIA KIM [place] Room: [facility]#: [id number] Admission: 03/27/20 Attend Phys: Aisha Meléndez, Discharge: Date of : 84 Date of Service: 03/27/20 1541 Report #: [id number] Pericardium There is no pericardial effusion. <Conclusion> The left ventricle is normal size. There is normal left ventricular wall thickness. Left ventricular systolic function is normal. LVEF is 55-60%. The left ventricular diastolic function is normal. IVC is normal in size and collapses >50% with inspiration. <ELECTRONICALLY SIGNED> By: Jamaal Mehta MD, FACC 03/27/20 [phone] Jamaal Mehta MD, FACC /INF
== END ==
LOC: M.CRD 13:42
PROVIDERS: ATTEND Nurse Practitioner Family
DX: R00.2 Palpitations (principal); R00.0 Tachycardia, unspecified; R07.9 Chest pain, unspecified